=== PATIENT | male | born 1970 | race Caucasian/White ===

== ENCOUNTER 2018-02-12 11:02 | Emergency (ER) | payer OTHER ==
--- NOTE | 2018-02-12 11:38 | EDM.PDOC ---
ED HPI GENERAL MEDICAL PROBLEM - General Chief Complaint: Upper Extremity Injury/Pain Stated Complaint: FISH HOOK IN LEFT INDEX FINGER Time Seen by Provider: 02/12/18 11:10 Source of Information: Reports: Patient History Limitations: Reports: No Limitations - History of Present Illness INITIAL COMMENTS - FREE TEXT/NARRATIVE: Patient comes in to the emergency department with a fishhook in his finger. Patient was fishing this Zenaida's dad and [employer]. When he was removing the fishhook from them off the fish jumped in the hook went into left hand ring finger. Patient did try to remove and did cut the fishhook off prior to entering the emergency department. Patient denies any numbness and tingling or any loss of sensation. Patient is able to move the finger without difficulty. Bleeding is minimal and is able to be controlled with direct pressure. The fish hook does have a secondary hook on it. Onset: Sudden Location: Reports: Upper Extremity, Left Quality: Reports: Ache, Throbbing Improves with: Reports: Immobilization Worsens with: Reports: Movement Right Index Finger Pain Score (Numeric/FACES): 6 - Related Data Allergies Allergy/AdvReac Type Severity Reaction Status Date / Time No Known Allergies Allergy Verified 02/12/18 11:27 Home Meds: Home Meds Meloxicam [Mobic] 10 mg PO DAILY 02/12/18 [History] Sulfamethoxazole/Trimethoprim [Bactrim Ds Tablet] 1 each PO BID 7 Days #14 tablet 02/12/18 [Rx] Review of Systems - Review of Systems Review Of Systems: See Below Constitutional: Reports: No Symptoms Eyes: Reports: No Symptoms Ears: Reports: No Symptoms Nose: Reports: No Symptoms Mouth/Throat: Reports: No Symptoms Respiratory: Reports: No Symptoms Cardiovascular: Reports: No Symptoms GI/Abdominal: Reports: No Symptoms Musculoskeletal: Reports: No Symptoms Skin: Reports: No Symptoms Neurological: Reports: No Symptoms Psychiatric: Reports: No Symptoms ED EXAM, GENERAL - Physical Exam Exam: See Below Exam Limited By: No Limitations General Appearance: Alert, WD/WN, No Apparent Distress Head: Atraumatic, Normocephalic Neck: Normal Inspection, Supple, Non-Tender Respiratory/Chest: No Respiratory Distress, No Accessory Muscle Use Cardiovascular: Normal Peripheral Pulses, Regular Rate, Rhythm Peripheral Pulses: 2+: Radial (L), Radial (R) Back Exam: Normal Inspection, Full Range of Motion Extremities: Normal Inspection, Normal Range of Motion, Non-Tender, Normal Capillary Refill Neurological: Alert, Oriented, Normal Gait Psychiatric: Normal Affect, Normal Mood Skin Exam: Warm, Dry, Intact, Normal Color, No Rash, Other (hook embedded in left hand ring finger. no swelling, redness or warmth noted. ) ED TRAUMA EXTREMITY PROCEDURES - Laceration/Wound Repair Left Distal Finger Lac/Wound Length In cm: 4 Appearance: Subcutaneous Local Anesthesia - Lidocaine (Xylocaine): 1% Plain Local Anesthetic Volume: 4cc Skin Prep: Saline, Sterile Drape Exploration/Debridement/Repair: Wound Explored, Explored to Base Closed With: Sutures Suture Size: 4-0 # of Sutures: 5 (incision made to removed inbedded hook in finger. ) Suture Type: Simple Sterile Dressing Applied: Nurse Tetanus Status Addressed: Yes Complications: No Progress/Comments: wound base visualized no tendon involvement noted. bleeding minimal. Pt tolerated without difficulty. - Foreign Body Removal Indication:: fish hook in finger unable to remove prior to arrival Consent Obtained: Patient Anesthesia Type: Local Complications:: Yes (unable to remove with simple use of tweezers. Did need to make a laceration) Course - Vital Signs Last Recorded V/S: Last Vital Signs Temp 36.2 C 02/12/18 11:30 Pulse 76 02/12/18 11:30 Resp 16 02/12/18 11:30 BP 154/95 H 02/12/18 11:30 Pulse Ox 99 02/12/18 11:30 - Orders/Labs/Meds Meds: Medications Discontinued Medications Generic Name Dose Route Start Last Admin Trade Name Romulo PRN Reason Stop Dose Admin Lidocaine HCl 5 ml 02/12/18 11:07 Xylocaine-Mpf 1% INJECT 02/12/18 11:08 ONETIME ONE Departure - Departure Time of Disposition: 11:40 Disposition: Home, Self-Care 01 Condition: Good Clinical Impression: Fish hook injury of finger Qualifiers: Encounter type: initial encounter Laterality: right Qualified Code(s): S69.91XA - Unspecified injury of right wrist, hand and finger(s), initial encounter - Discharge Information Prescriptions: Sulfamethoxazole/Trimethoprim [Bactrim Ds Tablet] 1 each PO BID 7 Days #14 tablet Instructions: Laceration Care, Adult Additional Instructions: 1. Keep the finger clean and dry 2. Covered with working with soiled products 3. Return in 10 days to the clinic to have sutures removed 4. Take antibiotics as prescribed 5. Follow-up in the clinic with signs of infection
== END 2018-02-12 11:48 | disposition home or self-care (01) ==
LOC: SUPCPDRO 11:02 → VM.ED 11:02
DX: S60.450A Superficial foreign body of right index finger, initial encounter (principal); W45.8XXA Other foreign body or object entering through skin, initial encounter
CPT/HCPCS: 10120; 12002; 12041; 99282